=== PATIENT | female | born 1985 | race Caucasian/White ===

== ENCOUNTER 2017-06-07 14:25 | Emergency (ER) | payer BC, OTHER ==
[2017-06-07 14:35] VITALS: BP 127/82
--- NOTE | 2017-06-07 14:44 | UC ---
Throat Pain/Nasal Antony HPI - HPI Summary HPI Summary: 32 year old female presents with complains of sore throat, fever, and chills - History of Current Complaint Chief Complaint: UCRespiratory Stated Complaint: FEVER,SINUS,SORE THROAT,COUGH Time Seen by Provider: 06/07/17 14:43 Hx Obtained From: Patient Hx Last Menstrual Period: 05/15/17 Onset/Duration: Sudden Onset Severity: Moderate Pain Scale Used: 0-10 Numeric - 5 Cough: Nonproductive Associated Signs & Symptoms: Positive: Sinus Discomfort, Nasal Discharge - Allergies/Home Medications Allergies/Adverse Reactions: Allergies Allergy/AdvReac Type Severity Reaction Status Date / Time Sulfa Antibiotics Allergy Vomiting Verified 06/07/17 14:35 Home Medications: Home Medications Levonorgestrel-Ethinyl Estradi [Ashlyna 0.15-0.03 &0.01 mg] 1 tab PO DAILY 06/07 [History Confirmed 06/07/17] PMH/Surg Hx/FS Hx/Imm Hx Previously Healthy: Yes - Surgical History Surgical History: Yes Surgery Procedure, Year, and Place: c section x2. nasal septum - Social History Alcohol Use: Rare Substance Use Type: None Smoking Status (MU): Never Smoked Tobacco Review of Systems Constitutional: Negative Skin: Negative Eyes: Negative ENT: Sore Throat, Nasal Discharge, Sinus Congestion, Sinus Pain/Tenderness Respiratory: Negative Cardiovascular: Negative Gastrointestinal: Negative Genitourinary: Negative Motor: Negative Neurovascular: Negative Musculoskeletal: Negative Neurological: Negative Psychological: Negative All Other Systems Reviewed And Are Negative: Yes Physical Exam Triage Information Reviewed: Yes Vital Signs: Initial Vital Signs Temp 37.4 C 06/07/17 14:31 Pulse 82 06/07/17 14:31 Resp 16 06/07/17 14:31 BP 127/82 06/07/17 14:31 Pulse Ox 100 06/07/17 14:31 Eye Exam: Normal ENT Exam: Normal ENT: Positive: Nasal congestion Dental Exam: Normal Neck exam: Normal Neck: Positive: 1 Respiratory Exam: Normal Cardiovascular Exam: Normal Abdominal Exam: Normal Musculoskeletal Exam: Normal Neurological Exam: Normal Psychological Exam: Normal Skin Exam: Normal Throat Pain/Nasal Course/Dx - Differential Dx/Diagnosis Provider Diagnoses: PHARYNGITIS. ALLERGIC RHINNITIS. CERUMEN IMPACTION Discharge - Discharge Plan Condition: Stable Disposition: HOME Prescriptions: Amoxicillin/Clavulanate TAB* [Augmentin TAB 875*] 875 mg PO BID #20 tab LoraTADine TAB(NF) [Claritin 10 MG TAB(NF)] 10 mg PO DAILY #30 tab Magic M W2 Rob/Maal/Nyst/Lido* 15 ml SWISH SPIT QID #120 ml Neomyc/Polym/HC 1% OTIC SUSP* [Cortisporin Otic Susp 1%*] 4 drop BOTH EARS QID # 1 btl Patient Education Materials: Pharyngitis (ED), Cerumen Impaction (ED) Referrals: Jesika Terry MD [Primary Care Provider] - If Needed
== END 2017-06-07 15:23 | disposition home or self-care (01) ==
LOC: UCCORT 14:25
DX: J02.9 Acute pharyngitis, unspecified (principal); J30.9 Allergic rhinitis, unspecified; H61.20 Impacted cerumen, unspecified ear
CPT/HCPCS: 87651; 99203; G0463